=== PATIENT | male | born 1995 | race Caucasian/White ===

== ENCOUNTER 2017-04-09 11:47 | Emergency (ER) | END 2017-04-09 19:15 | disposition home or self-care (01) | DX: M54.5 Low back pain (principal); S22.31XA Fracture of one rib, right side, initial encounter for closed fracture; W34.00XA Accidental discharge from unspecified firearms or gun, initial encounter; Y92.9 Unspecified place or not applicable | CPT/HCPCS: 71020; 72146; 72148; Z7502; Z7610 ==